=== PATIENT | male | born 1985 | race Asian ===

== ENCOUNTER 2024-07-23 00:33 | Emergency (ER) | payer SELFPAY ==
[~2024-07-23] VITALS: Ht 170.2 cm; Wt 74.0 kg
[2024-07-23 00:40] VITALS: TEMP 36.9; O2SAT 100
[2024-07-23 01:08] LABS: CHLORIDE 106 mEq/L (98-107); POTASSIUM 4.1 mEq/L (3.5-5.1); SODIUM 144 mEq/L (136-145)
[2024-07-23 01:09] LABS: CALCIUM 9.7 mg/dL (8.7-10.4); CARBON DIOXIDE 26 mEq/L (21-32)
[2024-07-23 01:14] LABS: CREATININE 0.8 mg/dL (0.6-1.3); GLUCOSE 113 mg/dL (70-105); UREA NITROGEN BLOOD 14 mg/dL (9-23)
[2024-07-23] MEDS: MAGNESIUM/ALUMINUM HYDROXIDE/SIMETHICONE 30ML UDC PO STA (01:14)
[2024-07-23] MEDS: IBUPROFEN 600MG TABLET PO STA (01:14)
[2024-07-23] MEDS: ACETAMINOPHEN 325MG TABLET PO STA (01:14)
[2024-07-23] MEDS: ONDANSETRON 4MG ODT PO STA (01:14)
[2024-07-23 01:16] LABS: ALANINE AMINOTRANSFERASE 39 IU/L (10-49); ALBUMIN 4.6 g/dL (3.2-4.8); ASPARTATE AMINOTRANSFERASE 18 IU/L (<34); BILIRUBIN DIRECT 0.2 mg/dL (<=3.0); BILIRUBIN TOTAL 0.7 mg/dL (0.1-1.0); PROTEIN TOTAL 8.3 g/dL (6.0-8.3)
[2024-07-23 01:32] LABS: BASOPHILS % 0.1 % (0.0-2.0); EOSINOPHILS % 0.2 % (0.0-5.0); HEMATOCRIT. 48.6 % (42.0-52.0); HEMOGLOBIN. 16.7 g/dL (14.0-18.0); LYMPHOCYTES % 7.1 % (20.0-50.0); MEAN CORPUSCULAR HEMOGLOBIN 29.9 pg (28.0-32.0); MEAN CORPUSCULAR HGB CONC 34.3 g/dL (31.0-37.0); MEAN PLATELET VOLUME 9.1 fl (7.4-10.4); NEUTROPHILS % 88.6 % (40.0-76.0); PLATELET 248 x1000/uL (130-400); RED BLOOD CELL COUNT 5.59 mill/uL (4.7-6.1); RED CELL DISTRIBUTION WIDTH 12.5 % (11.6-14.6); WHITE BLOOD COUNT 11.4 x1000/uL (4.5-11.0)
[2024-07-23] MEDS: DICYCLOMINE 10 MG/5 ML ORAL SYR PO STA (03:05)
[2024-07-23 04:20] VITALS: BP 103/56; PULSE 82; RESP 20; O2SAT 99
== END 2024-07-23 04:22 | disposition home or self-care (01) ==
LOC: ER 00:33
DX: A08.4 Viral intestinal infection, unspecified (principal); Z90.49 Acquired absence of other specified parts of digestive tract
CPT/HCPCS: 99284; 80076; 80048; 83690; 85025; 36415; Q0162